=== PATIENT | male | born 1995 | race Caucasian/White ===

== ENCOUNTER → 2019-05-23 | Outpatient (CLI) | payer BC ==
--- NOTE | 2019-05-23 10:47 | XR ---
EXAMINATION TYPE: XR shoulder complete BILAT DATE OF EXAM: 05/23/2019 CLINICAL HISTORY: Nontraumatic chronic shoulder pain bilaterally. TECHNIQUE: Three views of the bilateral shoulders were obtained. COMPARISON: None. FINDINGS: There is no acute fracture/dislocation evident in either shoulder. The acromioclavicular and glenohumeral joint spaces appear within normal limits. There is a 3.5 year questionable intramed ullary lesion with ill-defined borders in the proximal left humeral diaphysis. This appears to be con tiguous with the lateral cortex on the oblique view but not definitively on the frontal view. This ap pears to have a groundglass matrix and therefore could represent fibrous dysplasia. Nonossifying fibr freida has an eccentric location such as this however this does not appear as a typical nonossifying fib danisha.. The visualized ribs are intact and unremarkable. IMPRESSION: 1. No acute fracture or dislocation in either shoulder. No significant arthropathy. 2. Left proximal humeral diaphyseal lesion for which initial evaluation with CT is recommended to ass ess borders, matrix, in continuity with the cortex. This could also assess for soft tissue component. MRI may be necessary subsequently for further evaluation if CT is equivocal.
--- NOTE | 2019-05-23 11:37 | XR ---
EXAMINATION TYPE: XR knee complete bilateral DATE OF EXAM: 05/23/2019 CLINICAL HISTORY: Chronic bilateral knee pain with no known injury TECHNIQUE: Three views of the bilateral knees were obtained. COMPARISON: None. FINDINGS: There is no acute fracture/dislocation evident in either knee. The tri-compartment joint spaces appear within normal limits. No suspicious osseous lesion is seen. Osseous mineralization is within normal limits. The overlying soft tissue appears unremarkable. IMPRESSION: 1. No acute fracture or dislocation in either knee. 2. No significant arthropathy at this time.
== END | disposition home or self-care (01) ==
LOC: RADXRMAIN 09:53
PROVIDERS: ATTEND Family Medicine
DX: M89.9 Disorder of bone, unspecified (principal); M25.561 Pain in right knee; M25.562 Pain in left knee